=== PATIENT | male | born 1980 | race Hispanic/Latino ===

== ENCOUNTER 2025-05-05 17:13 | Emergency (ER) | payer OTHER ==
[~2025-05-05] VITALS: Ht 170.2 cm; Wt 95.3 kg
[2025-05-05 19:53] VITALS: PULSE 89; RESP 16; TEMP 99
[2025-05-05 21:17] LABS: BASOPHILS % 0.2 % (0.0-1.0); EOSINOPHILS % 0.1 % (0.0-6.0); LYMPHOCYTES % 8.3 % (18.0-39.1); MONOCYTES % 2.8 % (4.4-11.3); NEUTROPHILS % 88.2 % (38.7-80.0); RED CELL DISTRIBUTION WIDTH 12.9 % (11.7-14.4)
[2025-05-05 21:31] LABS: EST GLOMERULAR FILTRATION RATE 80.0 ML/MIN (>=60)
[2025-05-05 22:05] LABS: CORONAVIRUS COVID-19 AG NEGATIVE (NEGATIVE)
[2025-05-05] MEDS ORDERED: ONDANSETRON ODT4 MG SL (22:49)
[2025-05-05 23:00] VITALS: BP 148/98; PULSE 69; RESP 16; TEMP 98.7; O2SAT 100
== END 2025-05-05 23:02 | disposition home or self-care (01) ==
LOC: ER 20:25
DX: R06.02 Shortness of breath (principal); R07.89 Other chest pain; R51.9 Headache, unspecified; R20.2 Paresthesia of skin; R42 Dizziness and giddiness; F41.9 Anxiety disorder, unspecified; I10 Essential (primary) hypertension
CPT/HCPCS: 36415; 70450; 71045; 80053; 84484; 85025; 85379; 93005; 99284